=== PATIENT | male | born 1970 | race Caucasian/White ===

== ENCOUNTER 2021-05-09 07:10 | Emergency (ER) | payer SELFPAY ==
[~2021-05-09] VITALS: Ht 177.8 cm; Wt 77.1 kg
--- NOTE | 2021-05-09 08:04 | NUR ---
Patient came in to the er c/o abd pain since last night, +nausea vomiting. on room air, unlabored. connected to the monitor and pulse ox. Kept comfortable, will continue to monitor accordingly.
--- NOTE | 2021-05-09 08:05 | NUR ---
IV access started and blood drawned, urine collected and sent to lab.
[2021-05-09 08:16] LABS: BASOPHILS % (AUTO) 0.2 % (0.0-2.0); EOSINOPHILS % (AUTO) 0.4 % (0.0-6.0); HEMATOCRIT 48 % (39-51); HEMOGLOBIN 15.8 g/dL (13.5-17.5); LYMPHOCYTES # (AUTO) 1.1 K/uL (0.8-4.8); LYMPHOCYTES % (AUTO) 12.3 % (20.0-44.0); MEAN CORPUSCULAR HGB CONC 33 g/dl (31.0-36.0); MEAN CORPUSCULAR VOLUME 91 fL (80-96); MONOCYTES # (AUTO) 0.4 K/uL (0.1-1.30); MONOCYTES % (AUTO) 4.3 % (2.0-12.0); NEUTROPHILS # (AUTO) 7.5 K/uL (1.8-8.9); NEUTROPHILS % (AUTO) 82.8 % (43.0-81.0); PLATELET COUNT (AUTO) 249 K/uL (150-450); RED BLOOD CELL COUNT(AUTO) 5.24 MIL/uL (4.5-6.0); WHITE BLOOD COUNT (AUTO) 9.1 K/uL (4.3-11.0)
[2021-05-09 08:23] LABS: BILIRUBIN,URINE NEGATIVE (NEGATIVE); COLOR,URINE YELLOW (YELLOW); LEUKOCYTE ESTERASE ,URINE NEGATIVE (NEGATIVE); NITRITE, URINE NEGATIVE (NEGATIVE); PROTEIN,URINE NEGATIVE (NEGATIVE); UGLUCOSE NEGATIVE (NEGATIVE); UROBILINOGEN,URINE 0.2 EU/dL (0.2)
[2021-05-09 08:24] LABS: CALCIUM, SERUM 9.9 mg/dL (8.5-10.1); CREATININE 1.2 mg/dL (0.6-1.3); POTASSIUM 4.1 mmol/L (3.5-5.1)
[2021-05-09 08:30] LABS: ALBUMIN 4.3 g/dL (3.4-5.0); BILIRUBIN,TOTAL 0.9 mg/dL (0.2-1.0); TOTAL PROTEIN, SERUM 7.7 g/dL (6.4-8.2)
[2021-05-09 08:36] LABS: BACTERIA,URINE Few /HPF (None Seen); RBC,URINE NONE SEEN /HPF (0-2); SQUAMOUS EPITHELIAL CELL,UR Rare /HPF (None Seen); URINE AMORPHOUS PHOSPHATES Many /HPF (None Seen); WBC,URINE 0-2 /HPF (0-3)
[2021-05-09] MEDS ORDERED: MAG HYDROX/AL HYDROX/SIMETH 30 ML UDC ONE (08:43)
[2021-05-09] MEDS ORDERED: ONDANSETRON HCL/PF 4 MG/2 ML VIAL ONE (08:43)
[2021-05-09] MEDS ORDERED: PANTOPRAZOLE 40 MG VIAL ONE (08:43)
[2021-05-09] MEDS ORDERED: MORPHINE SULFATE INJ 4 MG/ML DISP.SYRIN ONE (08:44)
[2021-05-09] MEDS ORDERED: LIDOCAINE VISCOUS 2% UD 15 ML UDC ONE (08:44)
[2021-05-09] MEDS: MORPHINE SULFATE INJ 2 MG/ML DISP.SYRIN IV ONE (08:50)
[2021-05-09] MEDS: IV NS 0.9% 500 ML BAG IV ONE (08:50)
[2021-05-09] MEDS: MAG HYDROX/AL HYDROX/SIMETH 30 ML UDC PO ONE (08:55)
[2021-05-09] MEDS: LIDOCAINE VISCOUS 2% UD 15 ML UDC MM ONE (08:55)
[2021-05-09] MEDS: ONDANSETRON HCL/PF 4 MG/2 ML VIAL IVP ONE (08:55)
[2021-05-09] MEDS: PANTOPRAZOLE 40 MG VIAL IV ONE (08:55)
[2021-05-09] MEDS ORDERED: LORA-259 PO (09:24)
[2021-05-09] MEDS ORDERED: FAMO40TA7 PO (09:24)
[2021-05-09] MEDS ORDERED: OMEP40CA21 PO (09:24)
[2021-05-09 09:32] VITALS: BP 128/72
--- NOTE | 2021-05-09 09:33 | NUR ---
Patient discharged to home in stable condition. Written and verbal after care instructions given. Patient verbalizes understanding of instruction.IV removed. Catheter intact and site benign. Pressure and 4x4 applied to site. No bleeding noted.
[2021-05-10] MEDS ORDERED: LEVO500T90 PO (12:46)
== END 2021-05-09 09:33 | disposition home or self-care (01) ==
LOC: ER 07:16
DX: R10.13 Epigastric pain (principal); R11.10 Vomiting, unspecified
CPT/HCPCS: 36415; 80053; 81001; 83690; 85025; 96374; 96375; 99284; C9113; J2270; J2405

== ENCOUNTER 2021-05-09 12:51 | Inpatient (IN) | payer MEDICAID ==
[~2021-05-09] VITALS: Ht 177.8 cm; Wt 79.4 kg
[~2021-05-09 12:51] MED LIST: FAMO40TA7 PO; LORA-259 PO; OMEP40CA21 PO
--- NOTE | 2021-05-09 13:15 | NUR ---
Patient came in to the er c/o abd pain and nausea vomiting x today, was here earlier for same reason got worst. On room air, connected to the monitor and pulse ox. kept comfortable, will continue to monitor accordingly.
[2021-05-09] MEDS ORDERED: MAG HYDROX/AL HYDROX/SIMETH 30 ML UDC ONE (13:25)
[2021-05-09] MEDS ORDERED: ONDANSETRON HCL/PF 4 MG/2 ML VIAL ONE (13:25)
[2021-05-09] MEDS ORDERED: HYDROMORPHONE 1 MG/1 ML DISP.SYRIN ONE (13:26)
[2021-05-09] MEDS ORDERED: IV NS 0.9% 500 ML BAG IV ONE (13:30)
[2021-05-09] MEDS ORDERED: ONDANSETRON HCL/PF 4 MG/2 ML VIAL IVP ONE (13:30)
[2021-05-09] MEDS ORDERED: IV NS 0.9% 1,000 ML BAG IV ONE (13:30)
[2021-05-09] MEDS ORDERED: HYDROMORPHONE INJ 2 MG/ML DISP.SYRIN IV ONE (13:30)
[2021-05-09] MEDS ORDERED: MAG HYDROX/AL HYDROX/SIMETH 30 ML UDC PO ONE (13:30)
[2021-05-09 13:42] LABS: BASOPHILS # (AUTO) 0.1 K/uL (0.0-0.2); BASOPHILS % (AUTO) 0.5 % (0.0-2.0); EOSINOPHILS % (AUTO) 0.7 % (0.0-6.0); HEMATOCRIT 48 % (39-51); LYMPHOCYTES # (AUTO) 0.6 K/uL (0.8-4.8); LYMPHOCYTES % (AUTO) 3.8 % (20.0-44.0); MEAN CORPUSCULAR HGB CONC 33 g/dl (31.0-36.0); MEAN CORPUSCULAR VOLUME 90 fL (80-96); MONOCYTES # (AUTO) 0.6 K/uL (0.1-1.30); MONOCYTES % (AUTO) 3.8 % (2.0-12.0); NEUTROPHILS # (AUTO) 15.5 K/uL (1.8-8.9); NEUTROPHILS % (AUTO) 91.2 % (43.0-81.0); PLATELET COUNT (AUTO) 247 K/uL (150-450); RED BLOOD CELL COUNT(AUTO) 5.37 MIL/uL (4.5-6.0); WHITE BLOOD COUNT (AUTO) 17.1 K/uL (4.3-11.0)
--- NOTE | 2021-05-09 13:51 | NUR ---
wheeled patient to ct accompanied by danette.
[2021-05-09] MEDS ORDERED: IOHEXOL-300 100 ML VIAL IV ONE (13:52)
[2021-05-09] MEDS ORDERED: IV NS 0.9% 250 ML IV ONE (13:53)
[2021-05-09] MEDS ORDERED: CT SWABBABLE VALVE TRANS SET 1 EA INFUS.SET MC ONE (13:53)
[2021-05-09 14:17] LABS: CALCIUM, SERUM 9.4 mg/dL (8.5-10.1); CARBON DIOXIDE 30 mmol/L (21-32); CHLORIDE 101 mmol/L (98-107); CREATININE 1.1 mg/dL (0.6-1.3); GLUCOSE 133 mg/dL (74-106); POTASSIUM 3.9 mmol/L (3.5-5.1); SODIUM SERUM 139 mmol/L (136-145); UREA NITROGEN, BLOOD 12 mg/dL (7-18)
[2021-05-09 14:23] LABS: ALANINE AMINOTRANSFERASE 30 U/L (12-78); ALBUMIN 4.2 g/dL (3.4-5.0); ALKALINE PHOSPHATASE 60 U/L (46-116); ASPARTATE AMINOTRANSFERASE 27 U/L (15-37); BILIRUBIN,DIRECT 0.2 mg/dL (0.0-0.2); BILIRUBIN,TOTAL 0.9 mg/dL (0.2-1.0); LIPASE 126 U/L (73-393); TOTAL PROTEIN, SERUM 7.6 g/dL (6.4-8.2)
--- NOTE | 2021-05-09 17:11 | NUR ---
covid swab collected and sent to lab.
--- NOTE | 2021-05-09 19:05 | NUR ---
REC'D REPORT FROM NESTOR HAWLEY FOR NELSON
--- NOTE | 2021-05-09 19:50 | NUR ---
room assignment: 315-5 m/s
[2021-05-09] MEDS ORDERED: HYDROMORPHONE INJ 2 MG/ML DISP.SYRIN IV PRN (20:00)
[2021-05-09] MEDS ORDERED: ACETAMINOPHEN 325 MG TABLET PO PRN (20:00)
[2021-05-09] MEDS ORDERED: Z GUARD REMEDY 2 OZ OINT TP PRN (20:00)
[2021-05-09] MEDS ORDERED: MORPHINE SULFATE INJ 2 MG/ML DISP.SYRIN IV PRN (20:00)
[2021-05-09] MEDS ORDERED: ONDANSETRON HCL/PF 4 MG/2 ML VIAL IVP PRN (20:00)
--- NOTE | 2021-05-09 20:00 | NUR ---
GAVE REPORT TO NESTOR BEE FOR NELSON
[2021-05-09 20:45] VITALS: BP 125/68
[2021-05-09] MEDS: IV D5/0.45 NACL 1,000 ML IV PRN (20:49)
--- NOTE | 2021-05-09 23:07 | NUR ---
RN ADMITTING NOTE Patient arrived via gurney accompanied by ER staff at 2020. Patient became nauseous with 1 episode of vomiting a large amount of undigested food. After vomiting nausea was relieved and patient did not need PRN Zofran. VSS BP -125/68, HR 93, RR 16, O2 sat 93%, temp 98.0. Ht 5ft 10in. Weight 175 via bed scale. Upon assessment bowel sounds hypo active abdomen slightly tender especially in upper mid abdomen, describes it as epigastric pain. Patient reports having 3 bowel movements today 1st one being formed second 2 being loose/diarrhea and brown. Denies bleeding. Vaccinated for COVID and Flu. Oriented to staff, unit protocols, call light, bed remote. bed locked in low position, 2 side rails up, shoes at bedside. Will continue to monitor pt.
[2021-05-10] MEDS: ZOSYN IVPB 3.375 G in IV D5W 50ml IV SCH ×2 (00:02→05:52)
[2021-05-10] MEDS ORDERED: PIPERACILLIN /TAZOBACTAM 3.375 G VIAL IV ONE ×2 (05:48)
[2021-05-10] MEDS: IV D5/0.45 NACL 1,000 ML IV PRN (06:43)
--- NOTE | 2021-05-10 06:46 | NUR ---
Patient has not had any other episodes of emesis since first admission. Patient was able to have brown formed BM in AM. Patient kept NPO. To have small bowel follow through in AM. Consents signed. VSS.
[2021-05-10 06:58] LABS: BASOPHILS % (AUTO) 0.2 % (0.0-2.0); EOSINOPHILS % (AUTO) 1.2 % (0.0-6.0); HEMATOCRIT 43 % (39-51); HEMOGLOBIN 14.7 g/dL (13.5-17.5); LYMPHOCYTES % (AUTO) 11.1 % (20.0-44.0); MEAN CORPUSCULAR HGB CONC 34 g/dl (31.0-36.0); MEAN CORPUSCULAR VOLUME 89 fL (80-96); MONOCYTES # (AUTO) 0.5 K/uL (0.1-1.30); MONOCYTES % (AUTO) 5.8 % (2.0-12.0); NEUTROPHILS # (AUTO) 7.5 K/uL (1.8-8.9); NEUTROPHILS % (AUTO) 81.7 % (43.0-81.0); PLATELET COUNT (AUTO) 214 K/uL (150-450); RED BLOOD CELL COUNT(AUTO) 4.81 MIL/uL (4.5-6.0); WHITE BLOOD COUNT (AUTO) 9.2 K/uL (4.3-11.0)
--- NOTE | 2021-05-10 07:30 | NUR ---
m/s slate trimmer: notes received pt sitting in chair with own clothes. awake, a/ox4. remains npo with dx: sbo. no c/o n/v or any discomfort. continue on iv fluids, infusing well. instructed to call for assistance. will continue to monitor.
[2021-05-10 07:45] LABS: ALBUMIN 3.3 g/dL (3.4-5.0); CALCIUM, SERUM 8.4 mg/dL (8.5-10.1); MAGNESIUM 2.2 mg/dL (1.8-2.4); PHOSPHORUS 3.4 mg/dL (2.5-4.9); POTASSIUM 3.7 mmol/L (3.5-5.1); TOTAL PROTEIN, SERUM 6.3 g/dL (6.4-8.2)
[2021-05-10 08:00] VITALS: BP 117/76
[2021-05-10] MEDS ORDERED: PANTOPRAZOLE 40 MG VIAL IV SCH (09:00)
[2021-05-10] MEDS ORDERED: DIATR MEGLU/DIATRIZOATE SODIUM 120 ML BOTTLE (GASTROGRAPHIN) ONE (09:12)
--- NOTE | 2021-05-10 09:15 | NUR ---
m/s shoelace tipping machine operator: notes to radiology dept for small bowel series via w/c accompanied by tech at this time.
--- NOTE | 2021-05-10 11:03 | NUR ---
m/s crayon sawyer: notes pt back to his room. iv fluids reconnected. instructed to call for assistance. will continue to monitor.
--- NOTE | 2021-05-10 12:45 | NUR ---
m/s rib stiffener and heel dipper: md visit seen and examined by dr. argueta with orders. orders acknowledged. for d'c planning today per md. pt aware. lunch ordered.
[2021-05-10] MEDS ORDERED: LEVO500T90 PO (12:46)
[2021-05-10] MEDS ORDERED: PIPERACILLIN /TAZOBACTAM 3.375 G in IV D5W 100 ML IV SCH (14:00)
--- NOTE | 2021-05-10 14:00 | NUR ---
m/s manager trading: surgeon consult seen and examined by seth (dayton) at this time. pt tolerated lunch. denies n/v at this time. no c/o abdominal discomfort. will continue to monitor.
--- NOTE | 2021-05-10 14:44 | NUR ---
m/s can line operator: notes dr. argueta notified and made aware that pt tolerated his regular diet. pt denies n/v and abdominal discomfort except for diarrhea due to oral contrast given when he had the small bowel series. pt made aware of d'c home today.
--- NOTE | 2021-05-10 15:35 | NUR ---
m/s supervisor train operations: notes discharge instructions with e script prescription given to pt and verbalized understanding. h/l removed with tip intact. pt drove himself here.
--- NOTE | 2021-05-10 15:50 | NUR ---
m/s parker: notes discharge home in stable condition with all dc papers and valuables via self private car.
== END 2021-05-10 15:50 | disposition home or self-care (01) | DRG 247 ==
LOC: ER 12:58 → MED 19:58
PROVIDERS: ADMIT Hospitalist; ATTEND Nurse Practitioner Acute Care
DX: K56.600 Partial intestinal obstruction, unspecified as to cause (principal); R65.10 Systemic inflammatory response syndrome (SIRS) of non-infectious origin without acute organ dysfunction; K21.9 Gastro-esophageal reflux disease without esophagitis; R73.9 Hyperglycemia, unspecified
CPT/HCPCS: 36415; 74250-TC; 80048-TC; 80053-TC; 80076-TC; 83605-TC; 83690-TC; 83735-TC; 84100-TC; 84484-TC; 85025-TC; 87040-TC; 87081-TC; C9113; C9803; G0378; J1170; J2405; J2543; J3490; J7030; J7040; J7050; J7060; Q9963; Q9967